=== PATIENT | male | born 1975 | race Caucasian/White ===

== ENCOUNTER 2022-11-19 13:36 | Inpatient (IN) | payer MEDICARE, MEDICAID ==
[~2022-11-19] VITALS: Ht 185.4 cm; Wt 94.1 kg
[2022-11-19] MEDS ORDERED: FLUORESCEIN SODIUM 1 MG STRIP OU ONE (14:30)
[2022-11-19] MEDS ORDERED: PROPARACAINE HCL 0.5% 15 ML OPHTHALMIC SOLUTION OU ONE (14:30)
[2022-11-19] MEDS ORDERED: WATER IV ONE (15:00)
[2022-11-19] MEDS ORDERED: ACYCLOVIR IV ONE (15:00)
[2022-11-19] MEDS ORDERED: SODIUM CHLORIDE 0.9% 1,000 ML IV ONE (15:00)
[2022-11-19] MEDS ORDERED: VANCOMYCIN HCL 1.25 GM in DEXTROSE 5%-WATER 250 ML IV ONE (15:00)
[2022-11-19] MEDS ORDERED: DEXTROSE 5% IV ONE (15:00)
[2022-11-19 15:30] LABS: BASOPHILS % (AUTO) 0.2 % (0.0-2.0); EOSINOPHILS % (AUTO) 0.2 % (1.0-6.0); HEMOGLOBIN 10.7 g/dL (13.5-17.5); LYMPHOCYTES # (AUTO) 2.1 K/uL (1.0-4.8); LYMPHOCYTES % (AUTO) 20.8 % (22.0-44.0); MEAN CORPUSCULAR HEMOGLOBIN 28.2 pg (26.0-34.0); MEAN CORPUSCULAR HGB CONC 33.3 G/dL (31.0-37.0); MEAN CORPUSCULAR VOLUME 85 fL (80-100); NEUTROPHILS # (AUTO) 6.9 K/uL (1.8-7.7); NEUTROPHILS % (AUTO) 68.8 % (40.0-70.0); PLATELET COUNT (AUTO) 225 K/uL (150-450); RED BLOOD CELL COUNT(AUTO) 3.78 MIL/uL (4.50-5.90); RED CELL DISTRIBUTION WIDTH 13.3 % (11.5-14.5); WHITE BLOOD COUNT (AUTO) 10.1 K/uL (4.5-11.0)
[2022-11-19 15:45] LABS: ALANINE AMINOTRANSFERASE 27 U/L (12-78); ALBUMIN 2.7 g/dL (3.4-5.0); ALKALINE PHOSPHATASE 99 U/L (46-116); ANION GAP 14 mmol/L (8-16); ASPARTATE AMINOTRANSFERASE 54 U/L (15-37); BILIRUBIN,TOTAL 0.5 mg/dL (0.1-1.0); CALCIUM, TOTAL 8.6 mg/dL (8.8-10.5); CARBON DIOXIDE 25 mmol/L (22-29); CHLORIDE 92 mmol/L (98-107); CREATININE 1.18 mg/dL (0.60-1.30); GLOMERULAR FILTR. RATE CALC > 60 mL/min (>60); GLUCOSE,RANDOM 102 mg/dL (70-110); SODIUM SERUM 131 mmol/L (136-145); TOTAL PROTEIN, SERUM 7.7 g/dL (6.4-8.2); UREA NITROGEN, BLOOD 25 mg/dL (7-18)
[2022-11-19 15:48] LABS: POTASSIUM 2.6 mmol/L (3.5-5.1)
[2022-11-19 15:51] LABS: LACTIC ACID 1.8 mmol/L (0.4-2.0)
[2022-11-19] MEDS ORDERED: OxyCODONE HCL/ACETAMINOPHEN 5-325 MG TABLET PO ONE (16:00)
[2022-11-19] MEDS ORDERED: POTASSIUM CHLORIDE 20 MEQ ER TABLET PO ONE (16:00)
[2022-11-19] MEDS: POTASSIUM CHL 10 MEQ/WATER 50 ML IV SCH ×2 (16:15→18:08)
[2022-11-19] MEDS ORDERED: MORPHINE SULFATE 2 MG/ML SYRINGE IVP PRN (16:30)
[2022-11-19] MEDS ORDERED: ACETAMINOPHEN 325 MG TABLET PO PRN (16:30)
[2022-11-19] MEDS ORDERED: MAGNESIUM HYDROXIDE SUSPENSION 30 ML UDCUP PO PRN (16:30)
[2022-11-19] MEDS ORDERED: ZOLPIDEM TARTRATE 5 MG TABLET PO PRN (16:30)
[2022-11-19] MEDS ORDERED: POTASSIUM CHL 10 MEQ/WATER 50 ML IV PRN (16:30)
[2022-11-19] MEDS ORDERED: ONDANSETRON HCL 4 MG/2 ML VIAL IVP PRN (16:30)
[2022-11-19] MEDS ORDERED: BISACODYL 10 MG RECTAL RECTAL SUPPOSITORY PR PRN (16:30)
[2022-11-19] MEDS ORDERED: LORA-1000 PO (20:22)
[2022-11-19] MEDS ORDERED: MELA5TAB21 PO (20:23)
[2022-11-19] MEDS ORDERED: METH-659 PO (20:25)
[2022-11-19] MEDS ORDERED: PERCT PO (20:26)
[2022-11-19] MEDS ORDERED: OXYC10TA58 PO (20:27)
[2022-11-19] MEDS ORDERED: GABA-1181 PO (20:28)
[2022-11-19] MEDS ORDERED: LISI-659 PO (20:29)
[2022-11-19] MEDS ORDERED: FLUO20TA29 PO (20:29)
[2022-11-19] MEDS ORDERED: ALBU90AE IH (20:30)
[2022-11-19] MEDS ORDERED: ROSU20TA73 PO (20:31)
[2022-11-19] MEDS ORDERED: THIA100T92 PO (20:31)
[2022-11-19] MEDS ORDERED: LINE600T14 PO (20:32)
[2022-11-19 21:03] VITALS: BP 110/57; PULSE 88; RESP 18; TEMP 99.1
[2022-11-19] MEDS: LORazepam 1 MG TABLET PO SCH (21:09)
[2022-11-19] MEDS: OxyCODONE HCL 10 MG ER TABLET PO SCH (21:09)
[2022-11-19] MEDS: DOCUSATE SODIUM 100 MG CAPSULE PO SCH (21:09)
[2022-11-19] MEDS: OxyCODONE HCL/ACETAMINOPHEN 5-325 MG TABLET PO PRN (21:09)
[2022-11-19 21:52] LABS: MAGNESIUM 2.1 mg/dL (1.80-2.40); POTASSIUM 3.1 mmol/L (3.5-5.1)
[2022-11-19] MEDS ORDERED: DEXTROSE 5% IV SCH (23:00)
[2022-11-19] MEDS ORDERED: WATER IV SCH (23:00)
[2022-11-19] MEDS ORDERED: ACYCLOVIR IV SCH (23:00)
[2022-11-19] MEDS ORDERED: SODIUM CHLORIDE 0.9% 500 ML IV ONE (23:55)
[2022-11-19] MEDS: POTASSIUM CHLORIDE 20 MEQ ER TABLET PO PRN (23:58)
[2022-11-19] MEDS: HEPARIN SODIUM,PORCINE 5,000 UNITS/ML VIAL SQ SCH (23:58)
[2022-11-19] MEDS: ACYCLOVIR 800 MG in DEXTROSE 5%-WATER 150 ML IV SCH (23:58)
[2022-11-20] VITALS (7 sets, daily range): BP systolic 98–128; BP diastolic 56–76; PULSE 58–76; RESP 15–20; TEMP 97.5–98.4; O2SAT 96–99
[2022-11-20] MEDS ORDERED: VANCOMYCIN HCL 750 MG in DEXTROSE 5%-WATER 250 ML IV ONE ×2
[2022-11-20 02:07] LABS: LYMPHS % FOR CD4 COUNT 25 % (Not Estab.); LYMPHS ABS FOR CD4 COUNT 2.6 x10E3/uL (0.7-3.1); WBC FOR CD4 COUNT 10.3 x10E3/uL (3.4-10.8)
[2022-11-20] MEDS: OxyCODONE HCL/ACETAMINOPHEN 5-325 MG TABLET PO PRN ×4 (03:17→21:54)
[2022-11-20] MEDS: ACYCLOVIR 800 MG in DEXTROSE 5%-WATER 150 ML IV SCH ×3 (06:57→23:49)
[2022-11-20] MEDS ORDERED: VANCOMYCIN 1GM/WATER(PEG/NADA) 200 ML IV SCH (08:00)
[2022-11-20] MEDS: HEPARIN SODIUM,PORCINE 5,000 UNITS/ML VIAL SQ SCH ×2 (09:38→16:38)
[2022-11-20] MEDS: OxyCODONE HCL 10 MG ER TABLET PO SCH ×2 (09:38→20:05)
[2022-11-20] MEDS: PANTOPRAZOLE SODIUM 40 MG DR TABLET PO SCH (09:39)
[2022-11-20] MEDS: DOCUSATE SODIUM 100 MG CAPSULE PO SCH ×2 (09:39→20:05)
[2022-11-20] MEDS: LORazepam 1 MG TABLET PO SCH ×2 (09:41→20:05)
[2022-11-20 10:07] LABS: ABSOLUTE CD4 COUNT 1089 /uL (359-1519); PERCENT CD4 CELLS 41.9 % (30.8-58.5)
[2022-11-20 14:47] LABS: BASOPHILS % (AUTO) 0.1 % (0.0-2.0); HEMATOCRIT 33.4 % (41-53); HEMOGLOBIN 11.3 g/dL (13.5-17.5); LYMPHOCYTES # (AUTO) 2.2 K/uL (1.0-4.8); LYMPHOCYTES % (AUTO) 28.5 % (22.0-44.0); MEAN CORPUSCULAR HEMOGLOBIN 28.7 pg (26.0-34.0); MEAN CORPUSCULAR HGB CONC 33.7 G/dL (31.0-37.0); MEAN CORPUSCULAR VOLUME 85 fL (80-100); MONOCYTES # (AUTO) 0.6 K/uL (0.1-1.0); MONOCYTES % (AUTO) 8.5 % (2.0-9.0); NEUTROPHILS # (AUTO) 4.7 K/uL (1.8-7.7); NEUTROPHILS % (AUTO) 61.9 % (40.0-70.0); PLATELET COUNT (AUTO) 276 K/uL (150-450); RED BLOOD CELL COUNT(AUTO) 3.92 MIL/uL (4.50-5.90); RED CELL DISTRIBUTION WIDTH 13.3 % (11.5-14.5); WHITE BLOOD COUNT (AUTO) 7.6 K/uL (4.5-11.0)
[2022-11-20 14:58] LABS: ANION GAP 9 mmol/L (8-16); CALCIUM, TOTAL 8.5 mg/dL (8.8-10.5); CARBON DIOXIDE 26 mmol/L (22-29); CHLORIDE 100 mmol/L (98-107); CREATININE 0.79 mg/dL (0.60-1.30); GLOMERULAR FILTR. RATE CALC > 60 mL/min (>60); GLUCOSE,RANDOM 87 mg/dL (70-110); POTASSIUM 3.5 mmol/L (3.5-5.1); SODIUM SERUM 135 mmol/L (136-145); UREA NITROGEN, BLOOD 12 mg/dL (7-18)
[2022-11-20] MEDS: VANCOMYCIN 1GM/WATER(PEG/NADA) 200 ML IV SCH (16:38)
[2022-11-20] MEDS ORDERED: SODIUM CHLORIDE 0.9% 500 ML IV ONE (23:42)
[2022-11-21] MEDS: VANCOMYCIN 1GM/WATER(PEG/NADA) 200 ML IV SCH ×4 (00:58→16:48)
[2022-11-21] MEDS: HEPARIN SODIUM,PORCINE 5,000 UNITS/ML VIAL SQ SCH ×4 (00:58→23:27)
[2022-11-21] MEDS: OxyCODONE HCL/ACETAMINOPHEN 5-325 MG TABLET PO PRN ×4 (02:19→20:35)
[2022-11-21 04:00] VITALS: BP 117/74; PULSE 75; RESP 17; TEMP 97.4
[2022-11-21 05:08] LABS: HIV 1-2 SCREEN 4TH GEN W/RFLX Non Reactive (Non Reactive)
[2022-11-21] MEDS: ACYCLOVIR 800 MG in DEXTROSE 5%-WATER 150 ML IV SCH ×3 (06:49→23:00)
[2022-11-21] MEDS: PANTOPRAZOLE SODIUM 40 MG DR TABLET PO SCH (09:00)
[2022-11-21] MEDS: DOCUSATE SODIUM 100 MG CAPSULE PO SCH ×2 (09:00→20:34)
[2022-11-21] MEDS: LORazepam 1 MG TABLET PO SCH ×2 (09:34→20:34)
[2022-11-21] MEDS: OxyCODONE HCL 10 MG ER TABLET PO SCH ×2 (09:34→20:35)
[2022-11-21 14:26] LABS: BASOPHILS % (AUTO) 0.2 % (0.0-2.0); EOSINOPHILS % (AUTO) 1.2 % (1.0-6.0); HEMATOCRIT 32.7 % (41-53); HEMOGLOBIN 10.9 g/dL (13.5-17.5); LYMPHOCYTES # (AUTO) 1.9 K/uL (1.0-4.8); LYMPHOCYTES % (AUTO) 23.3 % (22.0-44.0); MEAN CORPUSCULAR HEMOGLOBIN 28.7 pg (26.0-34.0); MEAN CORPUSCULAR HGB CONC 33.5 G/dL (31.0-37.0); MEAN CORPUSCULAR VOLUME 86 fL (80-100); MONOCYTES # (AUTO) 0.7 K/uL (0.1-1.0); MONOCYTES % (AUTO) 8.4 % (2.0-9.0); NEUTROPHILS # (AUTO) 5.3 K/uL (1.8-7.7); NEUTROPHILS % (AUTO) 66.9 % (40.0-70.0); PLATELET COUNT (AUTO) 336 K/uL (150-450); RED BLOOD CELL COUNT(AUTO) 3.81 MIL/uL (4.50-5.90); RED CELL DISTRIBUTION WIDTH 13.3 % (11.5-14.5)
[2022-11-21 14:50] LABS: ANION GAP 11 mmol/L (8-16); CALCIUM, TOTAL 8.7 mg/dL (8.8-10.5); CARBON DIOXIDE 26 mmol/L (22-29); CHLORIDE 102 mmol/L (98-107); CREATININE 0.78 mg/dL (0.60-1.30); GLOMERULAR FILTR. RATE CALC > 60 mL/min (>60); GLUCOSE,RANDOM 92 mg/dL (70-110); POTASSIUM 3.5 mmol/L (3.5-5.1); SODIUM SERUM 139 mmol/L (136-145); UREA NITROGEN, BLOOD 6 mg/dL (7-18); VANCOMYCIN,RANDOM 25.8 mcg/mL (25.0-50.0)
[2022-11-21 16:16] VITALS: BP 111/69; PULSE 87; RESP 18; TEMP 98.1
[2022-11-21 19:30] VITALS: BP 125/69; PULSE 89; RESP 20; TEMP 98.1
[2022-11-21 22:59] VITALS: BP 99/64; PULSE 71; RESP 18; TEMP 98
[2022-11-22] MEDS: VANCOMYCIN 1GM/WATER(PEG/NADA) 200 ML IV SCH ×3 (00:20→17:01)
[2022-11-22] MEDS: OxyCODONE HCL/ACETAMINOPHEN 5-325 MG TABLET PO PRN ×3 (00:27→20:29)
[2022-11-22] MEDS: ACYCLOVIR 800 MG in DEXTROSE 5%-WATER 150 ML IV SCH ×3 (06:19→22:39)
[2022-11-22 08:00] VITALS: BP 98/50; PULSE 74; RESP 20; TEMP 98.6
[2022-11-22] MEDS: PANTOPRAZOLE SODIUM 40 MG DR TABLET PO SCH (08:58)
[2022-11-22] MEDS: OxyCODONE HCL 10 MG ER TABLET PO SCH ×2 (08:58→20:28)
[2022-11-22] MEDS: LORazepam 1 MG TABLET PO SCH ×2 (08:58→20:28)
[2022-11-22] MEDS: HEPARIN SODIUM,PORCINE 5,000 UNITS/ML VIAL SQ SCH ×2 (08:58→17:01)
[2022-11-22] MEDS: DOCUSATE SODIUM 100 MG CAPSULE PO SCH ×2 (08:58→20:29)
[2022-11-22 11:43] VITALS: BP 108/65; PULSE 71; RESP 19; TEMP 98.6
[2022-11-22] MEDS: HYDROCODONE/ACETAMINOPHEN 5-325 MG TABLET PO PRN ×3 (12:14→22:26)
[2022-11-22] MEDS: CLOTRIMAZOLE 1% 15 GM CREAM TP SCH ×2 (13:30→22:33)
[2022-11-22 17:21] LABS: BASOPHILS % (AUTO) 0.6 % (0.0-2.0); EOSINOPHILS % (AUTO) 1.4 % (1.0-6.0); HEMATOCRIT 32.8 % (41-53); HEMOGLOBIN 10.8 g/dL (13.5-17.5); LYMPHOCYTES # (AUTO) 1.9 K/uL (1.0-4.8); MEAN CORPUSCULAR HEMOGLOBIN 29.1 pg (26.0-34.0); MEAN CORPUSCULAR VOLUME 88 fL (80-100); MONOCYTES # (AUTO) 0.7 K/uL (0.1-1.0); NEUTROPHILS # (AUTO) 5.5 K/uL (1.8-7.7); PLATELET COUNT (AUTO) 327 K/uL (150-450); RED BLOOD CELL COUNT(AUTO) 3.71 MIL/uL (4.50-5.90); RED CELL DISTRIBUTION WIDTH 13.2 % (11.5-14.5); WHITE BLOOD COUNT (AUTO) 8.3 K/uL (4.5-11.0)
[2022-11-22 17:30] LABS: CALCIUM, TOTAL 8.4 mg/dL (8.8-10.5); CARBON DIOXIDE 23 mmol/L (22-29); CHLORIDE 104 mmol/L (98-107); CREATININE 0.78 mg/dL (0.60-1.30); GLOMERULAR FILTR. RATE CALC > 60 mL/min (>60); GLUCOSE,RANDOM 120 mg/dL (70-110); POTASSIUM 3.3 mmol/L (3.5-5.1); UREA NITROGEN, BLOOD 8 mg/dL (7-18)
[2022-11-22 17:42] LABS: ANION GAP 10 mmol/L (8-16); SODIUM SERUM 137 mmol/L (136-145)
[2022-11-22 19:30] VITALS: BP 112/67; PULSE 71; RESP 20; TEMP 98
[2022-11-22] MEDS: POTASSIUM CHLORIDE 20 MEQ ER TABLET PO PRN (22:26)
[2022-11-23] MEDS: VANCOMYCIN 1GM/WATER(PEG/NADA) 200 ML IV SCH ×3 (00:06→16:55)
[2022-11-23 04:00] VITALS: BP 100/53; PULSE 64; RESP 16; TEMP 98.9
[2022-11-23] MEDS: OxyCODONE HCL/ACETAMINOPHEN 5-325 MG TABLET PO PRN ×5 (05:16→21:31)
[2022-11-23] MEDS: ACYCLOVIR 800 MG in DEXTROSE 5%-WATER 150 ML IV SCH ×3 (06:39→23:38)
[2022-11-23] MEDS: HEPARIN SODIUM,PORCINE 5,000 UNITS/ML VIAL SQ SCH ×4 (08:31→23:37)
[2022-11-23] MEDS: LORazepam 1 MG TABLET PO SCH ×2 (08:31→20:27)
[2022-11-23] MEDS: CLOTRIMAZOLE 1% 15 GM CREAM TP SCH ×2 (08:32→20:32)
[2022-11-23] MEDS: PANTOPRAZOLE SODIUM 40 MG DR TABLET PO SCH (08:32)
[2022-11-23] MEDS: DOCUSATE SODIUM 100 MG CAPSULE PO SCH ×2 (08:32→20:27)
[2022-11-23] MEDS: OxyCODONE HCL 10 MG ER TABLET PO SCH ×2 (08:33→20:31)
[2022-11-23 08:54] VITALS: BP 109/52; PULSE 72; RESP 18; TEMP 98.5
[2022-11-23 10:05] LABS: ANION GAP 8 mmol/L (8-16); CALCIUM, TOTAL 8.4 mg/dL (8.8-10.5); CARBON DIOXIDE 24 mmol/L (22-29); CHLORIDE 106 mmol/L (98-107); CREATININE 0.71 mg/dL (0.60-1.30); GLOMERULAR FILTR. RATE CALC > 60 mL/min (>60); GLUCOSE,RANDOM 92 mg/dL (70-110); POTASSIUM 3.6 mmol/L (3.5-5.1); SODIUM SERUM 138 mmol/L (136-145); UREA NITROGEN, BLOOD 6 mg/dL (7-18)
[2022-11-23 19:30] VITALS: BP 93/58; PULSE 73; RESP 16; TEMP 98.5
[2022-11-24] MEDS: VANCOMYCIN 1GM/WATER(PEG/NADA) 200 ML IV SCH ×3 (00:58→16:55)
[2022-11-24] MEDS: OxyCODONE HCL/ACETAMINOPHEN 5-325 MG TABLET PO PRN ×6 (01:17→23:41)
[2022-11-24 04:00] VITALS: BP 98/55; PULSE 76; RESP 20; TEMP 98.7
[2022-11-24] MEDS: ACYCLOVIR 800 MG in DEXTROSE 5%-WATER 150 ML IV SCH ×3 (06:24→23:40)
[2022-11-24 08:00] VITALS: BP 101/48; PULSE 69; RESP 20; TEMP 97.4
[2022-11-24] MEDS: PANTOPRAZOLE SODIUM 40 MG DR TABLET PO SCH (08:31)
[2022-11-24] MEDS: DOCUSATE SODIUM 100 MG CAPSULE PO SCH ×2 (08:31→21:15)
[2022-11-24] MEDS: LORazepam 1 MG TABLET PO SCH ×2 (08:31→21:15)
[2022-11-24] MEDS: HEPARIN SODIUM,PORCINE 5,000 UNITS/ML VIAL SQ SCH ×3 (08:32→23:40)
[2022-11-24] MEDS: OxyCODONE HCL 10 MG ER TABLET PO SCH ×2 (08:51→21:16)
[2022-11-24] MEDS: CLOTRIMAZOLE 1% 15 GM CREAM TP SCH ×2 (09:06→21:17)
[2022-11-24 20:24] VITALS: BP 99/69; PULSE 71; RESP 20; TEMP 98.3
[2022-11-24 23:35] VITALS: BP 119/73; PULSE 70; RESP 18; TEMP 98
[2022-11-25 02:28] VITALS: BP 127/62; PULSE 66; RESP 17; TEMP 97.3
[2022-11-25] MEDS: HYDROCODONE/ACETAMINOPHEN 5-325 MG TABLET PO PRN ×2 (02:31→20:21)
[2022-11-25] MEDS: OxyCODONE HCL/ACETAMINOPHEN 5-325 MG TABLET PO PRN ×5 (04:34→22:24)
[2022-11-25 04:42] VITALS: BP 149/74; PULSE 104; RESP 18; TEMP 97.4
[2022-11-25] MEDS: PANTOPRAZOLE SODIUM 40 MG DR TABLET PO SCH (08:50)
[2022-11-25] MEDS: ACYCLOVIR 800 MG in DEXTROSE 5%-WATER 150 ML IV SCH ×3 (08:50→22:24)
[2022-11-25] MEDS: DOCUSATE SODIUM 100 MG CAPSULE PO SCH ×2 (08:50→20:21)
[2022-11-25] MEDS: LORazepam 1 MG TABLET PO SCH ×2 (08:50→20:21)
[2022-11-25] MEDS: HEPARIN SODIUM,PORCINE 5,000 UNITS/ML VIAL SQ SCH ×2 (08:51→16:39)
[2022-11-25] MEDS: CLOTRIMAZOLE 1% 15 GM CREAM TP SCH ×2 (09:02→20:22)
[2022-11-25] MEDS: OxyCODONE HCL 10 MG ER TABLET PO SCH ×2 (09:17→20:22)
[2022-11-25 15:00] VITALS: BP 123/77; PULSE 61; RESP 18; TEMP 98.3
[2022-11-25 15:45] LABS: CALCIUM, TOTAL 8.9 mg/dL (8.8-10.5); CARBON DIOXIDE 28 mmol/L (22-29); CREATININE 0.77 mg/dL (0.60-1.30); GLOMERULAR FILTR. RATE CALC > 60 mL/min (>60); GLUCOSE,RANDOM 90 mg/dL (70-110); UREA NITROGEN, BLOOD 5 mg/dL (7-18)
[2022-11-25] MEDS ORDERED: QUEtiapine FUMARATE 100 MG TABLET PO PRN (15:45)
[2022-11-25] MEDS: GABAPENTIN 300 MG CAPSULE PO SCH ×3 (16:00→20:37)
[2022-11-25 16:45] LABS: ANION GAP 7 mmol/L (8-16); CHLORIDE 105 mmol/L (98-107); POTASSIUM 3.6 mmol/L (3.5-5.1); SODIUM SERUM 140 mmol/L (136-145)
[2022-11-25 17:14] LABS: VANCOMYCIN,RANDOM 9.3 mcg/mL (25.0-50.0)
[2022-11-25 19:48] VITALS: BP 154/89; PULSE 69; RESP 18; TEMP 98.2
[2022-11-25] MEDS: QUEtiapine FUMARATE 200 MG TABLET PO SCH (20:37)
[2022-11-26] MEDS: HEPARIN SODIUM,PORCINE 5,000 UNITS/ML VIAL SQ SCH ×4 (00:43→23:42)
[2022-11-26] MEDS: HYDROCODONE/ACETAMINOPHEN 5-325 MG TABLET PO PRN ×5 (00:44→23:43)
[2022-11-26] MEDS: OxyCODONE HCL/ACETAMINOPHEN 5-325 MG TABLET PO PRN ×4 (02:38→21:04)
[2022-11-26 03:54] VITALS: BP 92/60; PULSE 61; RESP 18; TEMP 97.7
[2022-11-26] MEDS: ACYCLOVIR 800 MG in DEXTROSE 5%-WATER 150 ML IV SCH ×2 (06:40→15:40)
[2022-11-26] MEDS: GABAPENTIN 300 MG CAPSULE PO SCH ×4 (09:00→20:06)
[2022-11-26] MEDS: DULoxetine HCL 20 MG CAPSULE PO SCH (09:00)
[2022-11-26] MEDS: DOCUSATE SODIUM 100 MG CAPSULE PO SCH ×2 (09:18→20:01)
[2022-11-26] MEDS: OxyCODONE HCL 10 MG ER TABLET PO SCH ×2 (09:19→20:02)
[2022-11-26] MEDS: PANTOPRAZOLE SODIUM 40 MG DR TABLET PO SCH (09:19)
[2022-11-26] MEDS: LORazepam 1 MG TABLET PO SCH ×2 (09:19→20:02)
[2022-11-26] MEDS: CLOTRIMAZOLE 1% 15 GM CREAM TP SCH ×2 (09:30→20:02)
[2022-11-26 19:29] VITALS: BP 132/85; PULSE 68; RESP 20; TEMP 98.7
[2022-11-26] MEDS: QUEtiapine FUMARATE 200 MG TABLET PO SCH (20:06)
[2022-11-27] MEDS: OxyCODONE HCL/ACETAMINOPHEN 5-325 MG TABLET PO PRN ×4 (01:13→13:54)
[2022-11-27 03:23] VITALS: BP 131/81; PULSE 68; RESP 20; TEMP 98
[2022-11-27] MEDS: HYDROCODONE/ACETAMINOPHEN 5-325 MG TABLET PO PRN (03:47)
[2022-11-27] MEDS: LORazepam 1 MG TABLET PO SCH (08:22)
[2022-11-27] MEDS: GABAPENTIN 300 MG CAPSULE PO SCH ×3 (08:22→13:00)
[2022-11-27] MEDS: DULoxetine HCL 20 MG CAPSULE PO SCH (08:22)
[2022-11-27] MEDS: PANTOPRAZOLE SODIUM 40 MG DR TABLET PO SCH (08:22)
[2022-11-27] MEDS: DOCUSATE SODIUM 100 MG CAPSULE PO SCH (08:22)
[2022-11-27] MEDS: HEPARIN SODIUM,PORCINE 5,000 UNITS/ML VIAL SQ SCH (08:23)
[2022-11-27] MEDS: OxyCODONE HCL 10 MG ER TABLET PO SCH (08:23)
[2022-11-27] MEDS: CLOTRIMAZOLE 1% 15 GM CREAM TP SCH (08:44)
[2022-11-27 10:30] VITALS: BP 100/56; PULSE 67; RESP 20; TEMP 98.3
[2022-11-27] MEDS ORDERED: DULO20CA71 PO (16:00)
[2022-11-27] MEDS ORDERED: CLOT15CR29 TP (16:00)
[2022-11-27] MEDS ORDERED: PANT-31 PO (16:02)
[2022-11-27] MEDS ORDERED: QUET200T PO (16:04)
== END 2022-11-27 16:35 | DRG 866 ==
LOC: EMS 13:43 → 5S 17:00 → 6N 11-20 22:35
PROVIDERS: ADMIT Internal Medicine; ATTEND Internal Medicine
DX: B02.7 Disseminated zoster (principal); L03.90 Cellulitis, unspecified; F11.20 Opioid dependence, uncomplicated; J44.9 Chronic obstructive pulmonary disease, unspecified; M48.00 Spinal stenosis, site unspecified; I10 Essential (primary) hypertension; F29 Unspecified psychosis not due to a substance or known physiological condition; L29.9 Pruritus, unspecified; G89.29 Other chronic pain; F17.210 Nicotine dependence, cigarettes, uncomplicated; E87.6 Hypokalemia; E78.00 Pure hypercholesterolemia, unspecified; F25.9 Schizoaffective disorder, unspecified; M25.511 Pain in right shoulder; M54.2 Cervicalgia; Z88.0 Allergy status to penicillin; Z21 Asymptomatic human immunodeficiency virus [HIV] infection status
CPT/HCPCS: 80048; 80053; 80202; 83605; 83735; 84132; 85025; 86361; 87040; 87081; 87389; 93005; 99291; J0133; J1644; J3370; J3480; J7040; J7060; Q9967